=== PATIENT | female | born 1940 | race Caucasian/White ===

== ENCOUNTER 2016-11-29 12:57 | Emergency (ER) | payer MEDICARE, BC ==
[~2016-11-29 12:57] MED LIST: ADVAIR; ADVAIR 100-501 EACH IH; ADVAIR 1001 DISK W/D; ADVAIR 10028 BLISTER INH; ADVAIR 2501 DISK W/D IH; ALBUTEROL; ALBUTEROL17 GM; ALBUTEROL17 GM INH; ASPIRIN EC LOW81 MG PO; ASPIRIN325 MG; ASPIRIN325 MG PO; BUSPIRONE HCL15 M2; CLARITIN10 M4 PO; DIFLUCAN100 MG; ELAVIL25 MG; ELAVIL25 MG PO; ESTRACE; ESTRACE42.5 GM VG; FEROSUL325 MG PO; GLUCOSAMINE/CHO1 TAB PO; HYDROXYCHLOROQ200 MG PO; IMDUR30 M1 PO; IRON325 ( 65 PO; LEVAQUIN500 MG; LIPITOR20 M1 PO; LISINOPRIL10 M1 PO; LISINOPRIL5 M1 PO; LISINOPRIL5 MG; MACROBID 100 M100 MG PO; MELATONIN1 M2 PO; MIRALAX17 G1 PO; MUPIROCIN TOP; NAUSEA MED; NIASPAN1000 MG; NIASPAN1000 MG PO; PEPCID AC20 M1 PO; PEPCID20 MG PO; PLAVIX75 MG; PLAVIX75 MG PO; PRAVACHOL40 MG; PRAVACHOL40 MG PO; PREDNISONE1 MG PO; PROTONIX20 M2 PO; Pepcid PO; SENOKOT8.6 MG; ST. JOSEPH ASP325 MG; TAGAMET; TAGAMET300 MG PO; TOPROL XL25 MG PO; TOPROL XL50 M1 PO; TRIAMCINOLONE A15 G1 EXT; VICODIN 5/500 T1 TAB; VITAMIN D31000 UNI3 PO; WAL-ZYR D TABL1 EACH PO; WAL-ZYR10 MG PO; ZETIA10 MG; ZETIA10 MG PO; ZYRTEC; ZYRTEC10 M1 PO; [UNRECOGNIZED DRUG - OTHER]
[2016-11-29 13:29] LABS: BASO % 1.3 % (0-2); BASO ABSOLUTE COUNT 0.1 tho/cmm (0.0-0.2); EOS % 4.3 % (0-7); EOSINOPHIL ABSOLUTE COUNT 0.2 tho/cmm (0.0-0.7); HCT-HEMATOCRIT 35.9 % (34.0-49.0); HGB-HEMOGLOBIN 11.1 gm/dl (12.0-15.5); IMMATURE GRANULOCYTES ABSOLUTE 0.01 tho/cmm (0-0.03); IMMATURE GRANULOCYTES PERCENT 0.2 % (0-0.3); LYMPH % 28.5 % (20-45); LYMPH ABSOLUTE COUNT 1.3 tho/cmm (0.8-4.5); MCH (MEAN CORPUSCULAR HGB) 27.6 pg (28.0-32.0); MCHC MEAN CORPUSCULAR HGB CONC 30.9 % (32.0-36.0); MCV (MEAN CELL VOLUME) 89.3 fl (82.0-96.0); MEAN PLATELET VOLUME 9.7 cmc (9.4-12.4); MONO % 8.9 % (0-12); MONOCYTE ABSOLUTE COUNT 0.4 tho/cmm (0.0-1.2); NEUTROPHIL ABSOLUTE COUNT 2.7 tho/cmm (1.6-8.0); NEUTROPHIL-AUTOMATED 2.7 tho/cmm (1.6-8.0); NEUTROPHILS % 56.8 % (40-80); PLATELET COUNT 192 tho/cmm (150-450); RED BLOOD COUNT 4.02 mil/cmm (4.00-5.20); RED CELL DISTRIBUTION WIDTH 15.7 % (12.4-16.4); WHITE BLOOD COUNT 4.7 tho/cmm (4.0-10.0)
[2016-11-29 13:44] LABS: ANION GAP 14 mmol/L (0-20); BLOOD UREA NITROGEN 40 mg/dl (6-24); CALCIUM 8.5 mg/dl (8.5-10.5); CARBON DIOXIDE-VENOUS 22 mmol/L (22-32); CHLORIDE 112 mmol/l (96-110); CREATININE 1.16 mg/dl (0.50-1.10); GLUCOSE 98 mg/dL (70-110); POTASSIUM 4.9 mmol/L (3.7-5.1); SODIUM 143 mmol/L (135-145); eGFR VALUE FOR BLACK 54 mL/Min
== END 2016-11-29 14:44 ==
LOC: EDMED 12:57
PROVIDERS: Emergency Medicine
DX: R55 Syncope and collapse (principal); I25.10 Atherosclerotic heart disease of native coronary artery without angina pectoris; Z85.51 Personal history of malignant neoplasm of bladder; Z95.5 Presence of coronary angioplasty implant and graft; Z90.710 Acquired absence of both cervix and uterus; Z90.89 Acquired absence of other organs; Z79.899 Other long term (current) drug therapy; Z79.82 Long term (current) use of aspirin
CPT/HCPCS: J7030